=== PATIENT | male | born 1995 | race Caucasian/White ===

== ENCOUNTER 2025-03-12 01:05 | Inpatient (IN) | payer BC, SELFPAY ==
[2025-03-11 17:34] VITALS: BP 162/114
--- NOTE | 2025-03-11 18:19 | ED.GENMED ---
History of Present Illness
<Stephanie Carvalho PA-C - Last Filed: 03/12/25 04:09>
General
Chief Complaint: Skin Problem
Source: patient
Exam Limitations: none
Time Seen by Provider: 03/11/25 18:19
Nursing documentation reviewed up to this point in time: agreed with
History of Present Illness
History of Present Illness:
29-year-old male with past medical history of Behcet's disease, muscular dystrophy, who presents to the ER today with concerns of bilateral swelling, erythema, and blistering to his feet. This started with pain in the past few days but the redness
and the swollen rash started earlier this morning. Patient thought that it could be related to his Raynaud's disease however normally with his history of muscular dystrophy, he has decreased sensation but this time, his feet feel hot and even
though she creates pain to the touch. He has never had joint involvement with his Behcet's disease in the past. He follows with a duplication specialist in [place] and does not know their name. His Behcet's disease previously manifested as ulcers in
the mouth and uveitis. He has no chest pain or shortness of breath today. No fevers or chills. No purulent drainage from the toes. He reports that he has never had anything like this in the past. He has no nausea or vomiting.
Review of Systems
<Stephanie Carvalho PA-C - Last Filed: 03/12/25 04:09>
Review of Systems
All Other Systems: ROS reviewed and negative except as documented in HPI and ROS
Phy Exam
<Stephanie Carvalho PA-C - Last Filed: 03/12/25 04:09>
Physical Exam
Physical Exam:
General: Patient is well appearing and in no acute distress; non-toxic
Skin: Warm and dry, no rashes or lesions
Head: Normocephalic, atraumatic
Eyes: Sclera non-icteric. EOMs intact.
Cardiac: Regular rate and rhythm, no murmurs
Peripheral Vascular: No lower extremity swelling or edema, 2+ DP and PT pulses bilaterally
Pulm: Normal respiratory effort, no wheezes, rales, or rhonchi
Musculoskeletal: Erythematous rash noted to the bilateral feet with purpuric like lesions and a small area of petechiae
Neuro: CN II-XII intact, no focal neurologic deficits.
Psychiatric: Appropriate mood and affect.
Course
<Stephanie Carvalho PA-C - Last Filed: 03/12/25 04:09>
Orders/Labs/Results
Orders:
Orders
03/11/25 18:34
C-Reactive Protein Urgent
Comment: ADD ON
Complete Blood Count/With Diff Urgent
Comprehensive Metabolic Panel Urgent
Erythrocyte Sed Rate Urgent
Comment: ADD ON
PTT Urgent
Prothrombin Time Urgent
03/11/25 18:51
Morphine Sulfate 4 mg IV NOW STA
03/11/25 18:53
Add On- LAB Urgent
Tests Added?: ESR, CRP
03/11/25 20:35
CT Abd Aorta Angio W/ Run Off Urgent
Comment:
Reason For Exam: b/l lower extr pain, purpura
03/11/25 20:36
Blood Culture Q30M
ELIZABETH Source: Blood/Venous
Specimen Description:
Blood Culture Q30M
ELIZABETH Source: Blood/Venous
Specimen Description:
03/11/25 21:14
NIRMALA, IgG Reflex to HEp-2 [S] Urgent
ANCA - MPO/PR3 Ab Profile [S] Urgent
Cardiolipin Ab Panel [S] Urgent
Complement C3 Urgent
Complement C4 Urgent
03/11/25 21:25
MethylPREDNISolone PF [Solu-Medrol Pf] 60 mg IV NOW STA
03/11/25 21:31
Add On- LAB Urgent
Tests Added?: cryoglobulin, antiphospholipid antibiotics
03/11/25 22:58
Morphine Sulfate 4 mg IV NOW STA
03/12/25 00:55
Calcium 200mg(Ca. Carb. 500mg) [Tums Chewable Tablet] 200 mg PO NOW STA
Chlorhexidine Oral Rinse 0.12% [Peridex 0.12% Oral Rinse] 15 ml PO ONCE ONE
03/12/25 00:56
Admit/Transfer Patient As Directed
Co-Sign Provider:
Level of Care: Inpatient admission
Assign to:: Medical/Surgical
Physician / Group: Dony
Diagnosis: Rash
Reason for Hospitalization: Rash
Expected length of stay greater than two midnights?: Yes
ELOS- Estimated Length of Stay in days: 2
I certify the patient meets the requirements for IP care: Yes
PRN Pain Medication Management As Directed
May give lesser potent ordered pain med per pt: Yes
preference::
Protocol:: Medication orders for pain may be administered in a
manner that supports deferring to patient preference
when the pt is:
- Requesting an ordered lesser potent pain medication.
Least to most potent pain medications are defined
as: acetaminophen < NSAID < tramadol < opioids
(morphine, oxycodone, hydromorphone).
- Requesting a lesser dose of the same medication IF
ORDERED.
- Requesting a less intrusive route of administration
if both routes are prescribed by the provider (PO <
IV).
03/12/25 00:57
Code Status As Directed
Resuscitation Status: Full Code
03/12/25 02:25
Morphine Sulfate 2 mg IV Q4HPRN PRN
03/12/25 03:23
Acetaminophen [Tylenol] 650 mg PO Q4HPRN PRN
Bisacodyl [Dulcolax] 10 mg RECTAL [id number] PRN
Calcium 200mg(Ca. Carb. 500mg) [Tums Chewable Tablet] 400 mg PO Q4HPRN PRN
Docusate W/Senna [Senokot-S] 1 tablet PO BIDPRN PRN
Ondansetron Injectable [Zofran] 4 mg IV Q6HPRN PRN
Oxycodone [Roxicodone] 5 mg PO Q4HPRN PRN
Polyethylene Glycol Powder [Miralax] 17 grams PO DAILYPRN PRN
03/12/25 03:23
Rheumatology Consult Routine
Consulting Provider: Kim Go
Was physician already notified: Yes
Activity As Directed
Activity Level: With Assistance
Pneumatic Compression Sleeves As Directed
Type: Knee high
Vascular Checks As Directed
Location: dorsalis pedis
Vital Signs As Directed
Frequency: Per unit guidelines
DX Deep Vein Thrombosis Video Routine
03/12/25 Breakfast
Regular
At Your Request: Full Participation
Basic Metabolic Panel IN AM
Complete Blood Count/No Diff IN AM
Magnesium IN AM
03/12/25 08:00
Chlorhexidine Oral Rinse 0.12% [Peridex 0.12% Oral Rinse] 15 ml PO BID
MethylPREDNISolone PF [Solu-Medrol Pf] 60 mg IV DAILY
dextroamphetamine-amphetamine 5 mg PO BID
Abnormal Lab Results
03/11/25
18:34
Absolute Neuts (auto) 7.1 H 10^3/uL
(1.4-6.5)
Absolute Monos (auto) 0.8 H 10^3/uL
(0.1-0.6)
Neutrophils % 75.6 H %
(42.2-75.2)
Lymphocytes % 15.5 L %
(20.5-51.1)
Sodium 134 L mmol/L
(135-145)
AST 86 H U/L
(17-59)
ALT 109 H U/L
(0-50)
Total Protein 8.3 H g/dl
(6.3-8.2)
03/11/25 18:34
03/11/25 18:34
Vital Signs
Initial and Last Documented VS:
Initial Vital Signs
Temp Pulse Resp BP Pulse Ox
98.7 F 120 16 162/114 100
03/11/25 17:34 03/11/25 17:34 03/11/25 17:34 03/11/25 17:34 03/11/25 17:34
Last Documented Vital Signs
Temp Pulse Resp BP Pulse Ox
97.8 F 74 17 144/98 98
03/12/25 03:45 03/12/25 03:45 03/12/25 03:45 03/12/25 03:45 03/12/25 03:45
<Corie Mitchell MD - Last Filed: 03/11/25 22:08>
Orders/Labs/Results
Orders:
Orders
03/11/25 18:34
C-Reactive Protein Urgent
Comment: ADD ON
Complete Blood Count/With Diff Urgent
Comprehensive Metabolic Panel Urgent
Erythrocyte Sed Rate Urgent
Comment: ADD ON
PTT Urgent
Prothrombin Time Urgent
03/11/25 18:51
Morphine Sulfate 4 mg IV NOW STA
03/11/25 18:53
Add On- LAB Urgent
Tests Added?: ESR, CRP
03/11/25 20:35
CT Abd Aorta Angio W/ Run Off Urgent
Comment:
Reason For Exam: b/l lower extr pain, purpura
03/11/25 20:36
Blood Culture Q30M
ELIZABETH Source: Blood/Venous
Specimen Description:
Blood Culture Q30M
ELIZABETH Source: Blood/Venous
Specimen Description:
03/11/25 21:14
NIRMALA, IgG Reflex to HEp-2 [S] Urgent
ANCA - MPO/PR3 Ab Profile [S] Urgent
Cardiolipin Ab Panel [S] Urgent
Complement C3 Urgent
Complement C4 Urgent
03/11/25 21:25
MethylPREDNISolone PF [Solu-Medrol Pf] 60 mg IV NOW STA
03/11/25 21:31
Add On- LAB Urgent
Tests Added?: cryoglobulin, antiphospholipid antibiotics
03/11/25 22:58
Morphine Sulfate 4 mg IV NOW STA
03/12/25 00:55
Calcium 200mg(Ca. Carb. 500mg) [Tums Chewable Tablet] 200 mg PO NOW STA
Chlorhexidine Oral Rinse 0.12% [Peridex 0.12% Oral Rinse] 15 ml PO ONCE ONE
03/12/25 00:56
Admit/Transfer Patient As Directed
Co-Sign Provider:
Level of Care: Inpatient admission
Assign to:: Medical/Surgical
Physician / Group: Dony
Diagnosis: Rash
Reason for Hospitalization: Rash
Expected length of stay greater than two midnights?: Yes
ELOS- Estimated Length of Stay in days: 2
I certify the patient meets the requirements for IP care: Yes
PRN Pain Medication Management As Directed
May give lesser potent ordered pain med per pt: Yes
preference::
Protocol:: Medication orders for pain may be administered in a
manner that supports deferring to patient preference
when the pt is:
- Requesting an ordered lesser potent pain medication.
Least to most potent pain medications are defined
as: acetaminophen < NSAID < tramadol < opioids
(morphine, oxycodone, hydromorphone).
- Requesting a lesser dose of the same medication IF
ORDERED.
- Requesting a less intrusive route of administration
if both routes are prescribed by the provider (PO <
IV).
03/12/25 00:57
Code Status As Directed
Resuscitation Status: Full Code
03/12/25 02:25
Morphine Sulfate 2 mg IV Q4HPRN PRN
03/12/25 03:23
Acetaminophen [Tylenol] 650 mg PO Q4HPRN PRN
Bisacodyl [Dulcolax] 10 mg RECTAL [id number] PRN
Calcium 200mg(Ca. Carb. 500mg) [Tums Chewable Tablet] 400 mg PO Q4HPRN PRN
Docusate W/Senna [Senokot-S] 1 tablet PO BIDPRN PRN
Ondansetron Injectable [Zofran] 4 mg IV Q6HPRN PRN
Oxycodone [Roxicodone] 5 mg PO Q4HPRN PRN
Polyethylene Glycol Powder [Miralax] 17 grams PO DAILYPRN PRN
03/12/25 03:23
Rheumatology Consult Routine
Consulting Provider: Kim Go
Was physician already notified: Yes
Activity As Directed
Activity Level: With Assistance
Pneumatic Compression Sleeves As Directed
Type: Knee high
Vascular Checks As Directed
Location: dorsalis pedis
Vital Signs As Directed
Frequency: Per unit guidelines
DX Deep Vein Thrombosis Video Routine
03/12/25 Breakfast
Regular
At Your Request: Full Participation
Basic Metabolic Panel IN AM
Complete Blood Count/No Diff IN AM
Magnesium IN AM
03/12/25 08:00
Chlorhexidine Oral Rinse 0.12% [Peridex 0.12% Oral Rinse] 15 ml PO BID
MethylPREDNISolone PF [Solu-Medrol Pf] 60 mg IV DAILY
dextroamphetamine-amphetamine 5 mg PO BID
Abnormal Lab Results
03/11/25
18:34
Absolute Neuts (auto) 7.1 H 10^3/uL
(1.4-6.5)
Absolute Monos (auto) 0.8 H 10^3/uL
(0.1-0.6)
Neutrophils % 75.6 H %
(42.2-75.2)
Lymphocytes % 15.5 L %
(20.5-51.1)
Sodium 134 L mmol/L
(135-145)
AST 86 H U/L
(17-59)
ALT 109 H U/L
(0-50)
Total Protein 8.3 H g/dl
(6.3-8.2)
03/11/25 18:34
03/11/25 18:34
Vital Signs
Initial and Last Documented VS:
Initial Vital Signs
Temp Pulse Resp BP Pulse Ox
98.7 F 120 16 162/114 100
03/11/25 17:34 03/11/25 17:34 03/11/25 17:34 03/11/25 17:34 03/11/25 17:34
Last Documented Vital Signs
Temp Pulse Resp BP Pulse Ox
97.8 F 74 17 144/98 98
03/12/25 03:45 03/12/25 03:45 03/12/25 03:45 03/12/25 03:45 03/12/25 03:45
Agalt;Stephanie Carvalho PA-C - Last Filed: 03/12/25 04:09>
MDM/Problems Addressed
Differential Diagnosis Includes:
ddx include vasculitis, cellulitis, DIC, Raynaud phenomenon
MDM/Problems Addressed:
29-year-old male with a past medical history of muscular dystrophy, Bechet's disease, presents to the ER today with concerns of redness and swelling in his bilateral feet with associated bluish spots of discoloration. On my evaluation, I have a low
suspicion for infectious etiology, he has no fever, he has a normal white blood cell count.On exam, he is neurovascularly intact
I reviewed case with our duplication specialist on-call, Dr. Go, who has not seen a presentation of Behcet's vasculitis like this before however she is recommending a CT angiography to assess for possible micro emboli. She recommends starting dose of
60 mg IV of Solu-Medrol and assessing for response. Patient given morphine for pain.
Patient continues to have pain despite pain medications. With dose of Solu-Medrol, there does seem to be improvement in swelling and erythema however bluish spots of discoloration persist. CTA shows no evidence of significant plaques or stenosis,
no evidence of dissection or aneurysm. Interestingly, CRP and ESR is normal. Will refer for admission for continued IV steroid treatment and continued rheumatologic workup. No indication for antibiotics at this time
<Stephanie Carvalho PA-C - Last Filed: 03/12/25 04:09>
*Pulse Oximetry
SaO2: 100
Oxygen Mode of Delivery: Room air
Patient hypoxic: no
*Critical Care Note
Total Time (30-74mins, 75-104mins- exclusive of procedures): Not Applicable
ED Attending Note
<Stephanie Carvalho PA-C - Last Filed: 03/12/25 04:09>
-
Portions of this chart may have been created with voice recognition software.� Occasional wrong word or��sound alike� substitutions may have occurred due to the inherent limitations of voice recognition software.
<Corie Mitchell MD - Last Filed: 03/11/25 22:08>
ED Attending Note
Patient seen and examined by attending physician: Yes
I performed the substantive portion of visit, reviewed & personally made and approve the management plan that is documented in note by myself or TANIA.: Yes
ED Attending Note:
Patient appears nontoxic. Breathing comfortably. Bilateral distal feet and toes are erythematous and swollen. Patient states they are very painful. There are multiple areas of purpleish blue discoloration in addition to underlying erythema
Discharge Plan
Departure
Patient Disposition: Admit
Date of Disposition: 03/12/25
Time of Disposition: 00:10
Admit to: Med/Surg
Presentation/result/management discussed w/ accepting MD/DO: Hospitalist
Patient with high blood pressure during this ER visit?: Yes
Condition: Fair
Discharge Problem:
Bilateral foot pain
Interventions
Interventions:
*General Assessment Last Done: 03/11/25 18:28
*Neglect/Abuse Screening Last Done: 03/11/25 17:34
*ED COVID-19 Vaccine History Last Done: 03/11/25 18:28
*ED Influenza Vaccine History Last Done: 03/11/25 18:28
[facility] Fall Risk Assessment Tool Last Done: 03/11/25 18:27
*Risk Screen - Suicide (C-SSRS) Last Done: 03/11/25 17:34
*Nursing Disposition Last Done: 03/12/25 03:10
Discharge Date and Time
Discharge Date/Time: 03/12/25 03:10
[2025-03-11 18:28] VITALS: BP 167/108
[2025-03-11 18:42] LABS: Hematocrit 43.7 % (39.0-52.0); Hemoglobin 15.7 g/dL (13.0-18.0); Mean Corp Hgb Conc. 35.9 g/dL (33.0-37.0); Mean Corpuscular Volume 85.0 fL (80.0-94.0); Nucleated Red Blood Cells % 0 % (-); Platelet Count 240 10^3/uL (130-400); Red Cell Dist. Width 11.7 % (11.5-14.5)
[2025-03-11 18:53] LABS: APTT 23.9 Sec (23.4-35.0); INR 1.01; PT 13.1 Sec (11.4-14.6)
[2025-03-11] MEDS: MORPHINE SULFATE 4 MG IV ×2 (18:58→23:14)
[2025-03-11 19:00] LABS: ALT (SGPT) 109 U/L (0-50); AST (SGOT) 86 U/L (17-59); Albumin 4.9 g/dl (3.5-5.0); Alkaline Phosphatase 66 U/L (38-126); Blood Urea Nitrogen 13 mg/dl (9-20); Calcium 10.1 mg/dl (8.4-10.2); Carbon Dioxide 25 mmol/L (22-30); Chloride 99 mmol/L (98-107); Glucose 95 mg/dl (70-99); Potassium 4.1 mmol/L (3.5-5.1); Sodium 134 mmol/L (135-145); Total Protein 8.3 g/dl (6.3-8.2); eGFR > 60.00
[2025-03-11 19:18] LABS: C-Reactive Protein < 5.00 mg/L (0.0-10.00)
[2025-03-11 20:00] VITALS: BP 152/110
[2025-03-11 21:00] VITALS: BP 143/101
[2025-03-11] MEDS: SOLU-MEDROL PF 60 MG IV (22:15)
--- NOTE | 2025-03-12 00:23 | HPS.HSE ---
Family Physician
-
Family Physician: BOBBY SAWANT
Chief Complaint
-
lower extremity painful erythematous lesions on the toes
History of Present Illness
Patient is a 29-year-old male with past medical history significant for muscular dystrophy, Raynaud's syndrome, Behcet's disease who presents to the emergency department for intractable bilateral foot pain.
Patient reports he started having bony pain in his feet and toes during the night. He felt that this was may be secondary to increase in warmth and he tried to stick his toes out on and it is blanket. When he looked at his dose he had swelling.
In the morning prior to getting a shower he had noticed punctate population lesions in his toes bilaterally. They were painful to touch. After the shower the swelling increased and there was more lesions noted. He showed his lesions to a
physician relative will send him to the emergency department for evaluation.
Patient reports he has never had pressure lesions in his extremities before. He does have a history of Raynaud's but stated that there was no whitish discoloration or purplish discoloration of his toes before the swelling started. He denies any
itching. He denies any other rash. He did show me pictures lesion in the back of his neck as well as some oral lesions. He denies any recent stressors, he denies any recent travel. He denies any sick contacts.
Patient denies any changes to the color of his urine. He denies any griffin hematuria. He denies any chest pain or shortness of breath.
In the emergency department was afebrile, blood pressure was 140/100 with a pulse rate of 95 and oxygen saturation of 98% on room air.
CBC was unremarkable, electrolytes BUN and creatinine were all normal. AST was [address] angio of the abdomen and bilateral lower extremities without any embolic lesions: Short segment of mild noncalcified plaque suggested in the proximal right external iliac artery. No occlusion.
No other major vessel plaque or stenosis. No dissection or aneurysm. Bilateral 3-vessel runoff; attenuated/small size of the peroneal arteries at the level of the ankle. Severe atrophy and fatty replacement involving the muscles of the bilateral
calf and foot. Mild hepatomegaly, with moderate to advanced fatty infiltration. Incidental 2 mm nonobstructing right renal calculus.
Medical History
Past Medical History
Past Medical History: Reports Other
Additional Past Medical History:
Behcet's
Muscular dystrophy (CMTX)
Raynaud's (negative autoimmune serologies in the past)
Past Surgical History: Reports None
Social History
Tobacco: Non-smoker
Alcohol: None
Drug: None
Living: With Family
Family History
Family History: Other (Jxzuiy-Dchdgox-Njdtz-Tooth X, father with Behcet's)
Allergies / Home Medications
Allergies reflects when Allergies were last updated in [employer].
Home Medications with original date entered in [employer] [facility]
Allergy/Medication List:
Allergies
Allergy/AdvReac Type Severity Reaction Status Date / Time
No Known Allergies Allergy Unverified 03/11/25 17:34
Home Medications
dextroamphetamine-amphetamine 5 mg tablet 5 mg PO BID 03/12/25
Review of Systems
-
Constitutional: Reports No Symptoms
EENT: Reports No Symptoms
Respiratory: Reports No Symptoms
Cardiac: Reports No Symptoms
Abdomen/GI: Reports No Symptoms
: Reports No Symptoms
Musculoskeletal: Reports No Symptoms
Skin: Reports Rash
Neurological: Reports No Symptoms
Endocrine: Reports No Symptoms
Hematologic/Lymphatic: Reports No Symptoms
Psych: Reports No Symptoms
Physical Exam
Vital Signs
Vital Signs
Temp Pulse Resp BP Pulse Ox
98.7 F 95 21 143/101 99
03/11/25 17:34 03/11/25 23:00 03/11/25 23:00 03/11/25 21:00 03/11/25 23:00
Physical Exam
General: Well Developed, Well Nourished and No Apparent Distress
HEENT: NormoCephalic, Moist mucous membranes and Atraumatic
Respiratory: Clear
Cardiac: S1/S2 and Regular Rhythm; No Murmur or Rub
GI: Soft, Non Tender, Non Distended and Normal Bowel Sounds; No Organomegaly
Rectal: Deferred by Provider
Musculoskeletal: No Clubbing and No Cyanosis
Skin: Rash (Please see image)
Neuro: AO x 3 and Nonfocal/grossly intact
Psych: Calm
Laboratory Results
-
03/11/25 18:34
03/11/25 18:34
Laboratory Results
PT 13.1 Sec (11.4-14.6) 03/11/25 18:34
INR 1.01 03/11/25 18:34
APTT 23.9 Sec (23.4-35.0) 03/11/25 18:34
Total Bilirubin 1.3 mg/dl (0.2-1.3) 03/11/25 18:34
AST 86 U/L (17-59) H 03/11/25 18:34
ALT 109 U/L (0-50) H 03/11/25 18:34
Alkaline Phosphatase 66 U/L (38-126) 03/11/25 18:34
Data Reviewed
-
CT Scan: Report Reviewed by me
Lab Data: Labs Reviewed by me
Old Records: Reviewed
Impression/Plan
-
IMPRESSION:
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
toes bilaterally. There is mild surrounding swelling and erythema. He has no fevers or chills. He has no leukocytosis. He has a mild transaminitis with AST of 86 and ALT of 109. The rest of his labs are unremarkable at this time. Case
discussed with rheumatology by ED. These lesions do not look like his usual outpatient lesions which can be found in the back of his neck and in the mucocutaneous oral cavities. Swelling has improved with the steroids but is still having
persistent pain. CT scan and an angiogram was negative for acute vascular insufficiency. He denies any recent infectious processes. The lesions do not seem secondary to local irritation from shoes he was wearing. And they developed quite
suddenly. ESR and CRP are not elevated.
PLAN:
Bilateral 2 lesions�suspicion exists for occlusive inflammatory vasculitis and less likely infectious process such as subacute endocarditis although patient has no signs of infection. Very different from patient lesions. No evidence of acute
Raynaud's phenomenon at this moment but cannot rule out other lesions or secondary to Raynaud's syndrome.
�Admit to MedSurg for now
� Inflammatory markers
� Serologies have been sent which include lupus serologies, cryoglobulins, anticardiolipin antibodies, ANCA vasculitis studies, complement levels,
�Blood culture sent
� consider dermatology consultation for possible biopsy in the morning
� Rheumatology consult
� Continue pain control
� Will continue prednisone 60 mg IV daily for now pending rheum follow-up
DVT prophylaxis�SCDs
CODE STATUS�full code
[2025-03-12] MEDS: TUMS CHEWABLE TABLET 200 MG PO (01:42)
[2025-03-12] MEDS: PERIDEX 0.12% ORAL RINSE 15 ML PO ×2 (01:42→08:22)
[2025-03-12] MEDS: MORPHINE SULFATE 2 MG IV (02:30)
[2025-03-12 03:44] VITALS: BMI 22.6
[2025-03-12 03:45] VITALS: BP 144/98
[2025-03-12] MEDS: ROXICODONE 5 MG PO ×3 (03:45→13:14)
[2025-03-12 06:25] LABS: Hematocrit 41.1 % (39.0-52.0); Hemoglobin 14.6 g/dL (13.0-18.0); Mean Corp Hgb Conc. 35.5 g/dL (33.0-37.0); Mean Corpuscular Volume 85.3 fL (80.0-94.0); Platelet Count 216 10^3/uL (130-400); Red Cell Dist. Width 11.6 % (11.5-14.5)
[2025-03-12 06:51] LABS: Blood Urea Nitrogen 10 mg/dl (9-20); Calcium 9.5 mg/dl (8.4-10.2); Carbon Dioxide 22 mmol/L (22-30); Chloride 99 mmol/L (98-107); Estimated Creatinine Clearance > 125 ml/min; Glucose 132 mg/dl (70-99); Magnesium 2.0 mg/dl (1.6-2.3); Potassium 4.2 mmol/L (3.5-5.1); Sodium 131 mmol/L (135-145); eGFR > 60.00
[2025-03-12 07:58] VITALS: BP 160/98
[2025-03-12] MEDS: SOLU-MEDROL PF 60 MG IV (08:23)
--- NOTE | 2025-03-12 09:50 | W.PN.HOSP.TC ---
Today's Communication/Plan
-
see A/P
Assessment / Plan
Assessment / Plan
HPI: 29-year-old with congenital Venrzjg-Xzdoh-Fsglg X muscular dystrophy, Bechet syndrome, Raynaud's syndrome; p/w sudden development of painful erythematous nonblanching lesions at the toes mostly located to around the DIPs of the toes
bilaterally. There is mild surrounding swelling and erythema. He has no fevers or chills. He has no leukocytosis. He has a mild transaminitis with AST of 86 and ALT of 109. The rest of his labs are unremarkable at this time.
Case was discussed with rheumatology by ED. These lesions do not look like his usual outpatient lesions which can be found in the back of his neck and in the mucocutaneous oral cavities. Swelling has improved with the steroids but is still having
persistent pain. CT scan and an angiogram was negative for acute vascular insufficiency. He denies any recent infectious processes. The lesions do not seem secondary to local irritation from shoes he was wearing. And they developed quite suddenly.
ESR and CRP are not elevated.
CT Angio:
Short segment of mild noncalcified plaque suggested in the proximal right external iliac artery. No occlusion.
No other major vessel plaque or stenosis. No dissection or aneurysm.
Bilateral 3-vessel runoff; attenuated/small size of the peroneal arteries at the level of the ankle.
Severe atrophy and fatty replacement involving the muscles of the bilateral calf and foot.
Mild hepatomegaly, with moderate to advanced fatty infiltration.
Incidental 2 mm nonobstructing right renal calculus.
A/P
# Bilateral toe lesions, suspicion for occlusive inflammatory vasculitis and less likely infectious process such as subacute endocarditis although patient has no signs of infection.
No evidence of acute Raynaud's phenomenon at this moment but cannot rule out other lesions or secondary to Raynaud's syndrome.
Inflammatory markers CRP/ESR are negative,
Serologies have been sent which include lupus serologies, cryoglobulins, anticardiolipin antibodies, ANCA vasculitis studies, complement levels,
Follow Blood cultures
Rheumatology consulted, unclear if Rheum would be seeing this patient today or not ()- TT sent to fire prevention forester molly Go.
Continue pain control, currently on Tylenol PRN, oxycodone PRN, morphine PRN
Continue methylprednisone 60 mg IV daily for now
Pt requesting for discharge today, which I do not object. Informed pt to make appointment with molly COURTNEY after discharge.
If I do not hear back from rheum about steroid course, will plan to DC him with: prednisone 60 mg daily until further directed by rheum outpt.
DVT prophylaxis�SCDs
CODE STATUS�full code
Anticipated Discharge: Today
Subjective/Interval History
-
Date of Service: March 12, 2025
Objective Data
-
Labs:
Laboratory Results
03/12/25
06:04
WBC 3.9 L
Hgb 14.6
Hct 41.1
Plt Count 216
Sodium 131 L
Potassium 4.2
Chloride 99
Carbon Dioxide 22
BUN 10
Creatinine 0.7
Glucose 132 H
Calcium 9.5
Vital Signs:
Vital Signs
Temp Pulse Resp BP Pulse Ox
36.9 C 91 16 160/98 96
03/12/25 07:58 03/12/25 07:58 03/12/25 07:58 03/12/25 07:58 03/12/25 07:58
Review of Systems
-
History Source: Patient
Musculoskeletal: Reports Other (toe swelling and pain have improved )
Skin: Reports Rash (non-blanching petechial rash )
Physical Exam
-
General: Well Developed, Well Nourished, No Apparent Distress, Comfortable and Conversant
HEENT: Normocephalic, Atraumatic and Moist Mucous Membranes
Respiratory: Clear to Auscultation and Non Labored Respirations; Negative Accessory Resp Muscle Use
Cardiac: Regular Rhythm and S1/S2; Negative Murmur, Rub or Gallop
GI: Soft, Nontender, Nondistended and Normal Bowel Sounds; Negative Organomegaly
Rectal: Deferred by Provider
Musculoskeletal: No Clubbing, No Cyanosis and No Edema
Skin: Rash (see H/P )
Neuro: Awake and Alert
Psych: Calm and Intact Judgement/Insight
Data Reviewed
-
CT Scan: Report Reviewed by me and Discussed with Patient
Labs: Labs Reviewed by me
[2025-03-12 10:23] LABS: Urine Character Slightly Cloudy (Clear)
--- NOTE | 2025-03-12 10:36 | CM ---
patient seen at bedside
IA completed
discharge today-IMM n/a
Lives with his partner in a mutli-story home, flight steps to bed/bath
PLOF: Independent, wears braces
Denies DME
Denies VN/Rehab
PCP: Wilfred Ospina
Pharmacy: [facility], & [place]
PLAN: Home, no needs
partner to transport
[2025-03-12 10:42] LABS: Urine Red Blood Cell None Seen /HPF (0-2); Urine White Cell 0-2 /HPF (0-5)
[2025-03-12 11:46] VITALS: BP 154/93
--- NOTE | 2025-03-12 12:06 | W.DCSUMMARY ---
Discharge Summary
Discharge Data
Date of Admission: 03/12/25
Date of Discharge: 03/12/25
Total time spent discharging patient (in min): 40
-
Pending Results: No
Hospital Course
Principal Diagnosis:
Bilateral toe lesions, suspicion for occlusive inflammatory vasculitis
Chronic Diagnoses:�
Congenital Igautxu-Gfbpj-Ucqmj X muscular dystrophy,
Bechet syndrome,
Raynaud's syndrome
Procedures:�
None
Clinical course:�
This is a 29-year-old with past medical history as stated above, who presented with sudden development of painful erythematous nonblanching lesions at the toes mostly located to around the DIPs of the toes bilaterally. There is mild surrounding
swelling and erythema.
Problem 1:
Bilateral toe lesions, suspicion for occlusive inflammatory vasculitis.
The patient's inflammatory markers CRP/ESR are negative.
Serologies have been sent which include lupus serologies, cryoglobulins, anticardiolipin antibodies, ANCA vasculitis studies, complement levels; he has been informed to follow up the results of these outpatient.
Continue pain control with Tylenol and oxycodone PRN.
Patient was started with IV methylprednisone 60 mg daily, and was discharged with prednisone 60 mg daily until further directed by outpatient rheum.
He has been informed to follow-up with rheum as soon as possible following discharge.
As for the rest of his medical problems, they were stable during his hospital stay.
Discharge Plan
-
Patient Disposition: Home (Routine Discharge)
Discharge Diagnosis/Procedures: Bilateral toe lesions, suspicion for occlusive inflammatory vasculitis in setting of Bechet syndrome
Condition: Good
Diet: As tolerated
Activity: As tolerated
Driving Restrictions: As prior to admission
Blood Work: LFT in 1 week, result to your PCP
Activity Restrictions/Additional Instructions:
Make appointment with rheumatology ROZ
Follow up serologies (lupus serologies, cryoglobulins, anticardiolipin antibodies, ANCA vasculitis studies, complement levels) outpatient.
Referrals:
PRIVATE,PHYSICIAN [Family Provider, Internal Medicine] - in less than 1 week
Additional Discharge Medication Instructions: Continue prednisone 60 mg daily until seen by your instrument designer (ROZ)
Pain control with as needed Tylenol, Ibuprofen (take with food), oxycodone
Avoid Adderell as it may cause vasoconstriction
Prescriptions:
New
prednisone 20 mg tablet
60 mg PO DAILY Qty: 60 0RF
oxycodone 5 mg tablet
5 mg PO BID PRN (Reason: Pain) Qty: 3 0RF
(DME) LFT
See Rx Instructions .Route .MEDSUPPLY Qty: 1 0RF
Rx Instructions:
03/16 to 03/27/2025, result to PCP
Elevated LFT
Discontinued
dextroamphetamine-amphetamine 5 mg tablet
5 mg PO BID
Discharge Orders:
Discharge Patient (As Directed); Ordered 03/12/25
Ordered By: Mariella Cadena
Discharge Date and Time
Print Language: SWEDISH
[2025-03-14 01:19] LABS: ANA, IgG Reflex to HEp-2 None Detected (None Detected)
[2025-03-14 11:26] LABS: Serine Protease-3, IgG 0 AU/mL (0-19)
== END 2025-03-12 13:36 | disposition home or self-care (01) | DRG 546 ==
LOC: 2 SOUTH 01:05
PROVIDERS: Physician Assistant; ADMITTING PHYSICIAN Internal Medicine; ATTENDING PHYSICIAN Internal Medicine; EMERGENCY PHYSICIAN Emergency Medicine
DX: I77.6 Arteritis, unspecified (principal); M35.2 Behcet's disease; G60.0 Hereditary motor and sensory neuropathy; G71.00 Muscular dystrophy, unspecified; I73.00 Raynaud's syndrome without gangrene; N20.0 Calculus of kidney; R16.0 Hepatomegaly, not elsewhere classified; Z79.899 Other long term (current) drug therapy
CPT/HCPCS: 75635; 80048; 80053; 81003; 81015; 83516; 83735; 85025; 85027; 85610; 85652; 85730; 86038; 86140; 86147; 86160; 87040; 96374; 96375; 96376; 99285; Q9967